=== PATIENT | female | born 1955 | race Caucasian/White ===

== ENCOUNTER 2021-05-25 20:52 | Emergency (ER) | payer SELFPAY ==
[~2021-05-25] VITALS: Ht 162.6 cm; Wt 61.8 kg
[~2021-05-25 20:52] MED LIST: SULF1TAB24 PO
[2021-05-25] MEDS ORDERED: IPRATRPIUM/ALBUTEROL 0.5/2.5MG 3 ML NEBU. NEB ONE (21:45)
[2021-05-25] MEDS ORDERED: methylPREDNISolone SOD SUCC PF 125 MG/2 ML VIAL. IV ONE (21:45)
--- NOTE | 2021-05-25 21:52 | PHYS DOC ---
Past Medical History Past Medical History: No Pertinent History, COPD Past Surgical History: No Surgical History Smoking Status: Current Every Day Smoker Alcohol Use: None Drug Use: None General Adult EDM: Chief Complaint: SHORTNESS OF BREATH HPI: HPI: Patient is a 65 year old female with history of COPD, current smoker, who presents to the ED today complaining of shortness of breath for 5 days. Patient denies any fever, reports chronic cough. Denies any chest pain. She states she used her inhaler around 2 PM with minimal relief. She states she typically has to get some steroids to feel better. Review of Systems: Review of Systems: Constitutional: Denies fever or chills. [] Eyes: Denies change in visual acuity. [] HENT: Denies nasal congestion or sore throat. [] Respiratory: Reports shortness of breath, cough Cardiovascular: Denies chest pain or edema. [] GI: Denies abdominal pain, nausea, vomiting, bloody stools or diarrhea. [] : Denies dysuria. [] Musculoskeletal: Denies back pain or joint pain. [] Integument: Denies rash. [] Neurologic: Denies headache, focal weakness or sensory changes. [] Psychiatric: Denies depression or anxiety. [] Heart Score: C/O Chest Pain: N/A Risk Factors: Risk Factors: DM, Current or recent (<one month) smoker, HTN, HLP, family history of CAD, obesity. Risk Scores: Score 0 - 3: 2.5% MACE over next 6 weeks - Discharge Home Score 4 - 6: 20.3% MACE over next 6 weeks - Admit for Clinical Observation Score 7 - 10: 72.7% MACE over next 6 weeks - Early Invasive Strategies Current Medications: Current Medications Medications (Trade) Dose Ordered Sig/Raimundo Start Time Stop Time Status Last Admin Dose Admin Albuterol/ Ipratropium (Duoneb) 3 ml 1X ONCE 05/25/21 21:45 05/25/21 21:46 DC Methylprednisolone Sodium Succinate (SOLU-Medrol 125MG VIAL) 125 mg 1X ONCE 05/25/21 21:45 05/25/21 21:46 DC Allergies: Allergies: Allergies Coded Allergies Type Severity Reaction Last Updated Verified neomycin Allergy Intermediate hives, swelling 08/20/17 Yes Physical Exam: PE: Constitutional: Well developed, well nourished, no acute distress, non-toxic appearance. [] HENT: Normocephalic, atraumatic, bilateral external ears normal, oropharynx moist, no oral exudates, nose normal. [] Eyes: PERRLA, EOMI, conjunctiva normal, no discharge. [] Neck: Normal range of motion, no tenderness, supple, no stridor. [] Cardiovascular:Heart rate regular rhythm, no murmur [] Lungs & Thorax: Patient is short of air, diminished breath sounds Abdomen: Bowel sounds normal, soft, no tenderness, no masses, no pulsatile masses. [] Skin: Warm, dry, no erythema, no rash. [] Back: No tenderness, no CVA tenderness. [] Extremities: No tenderness, no cyanosis, no clubbing, ROM intact, no edema. [] Neurologic: Alert and oriented X 3, normal motor function, normal sensory function, no focal deficits noted. [] Psychologic: Affect normal, judgement normal, mood normal. [] Current Patient Data: Vital Signs: Vital Signs Date Time Temp Pulse Resp B/P (MAP) Pulse Ox O2 Delivery O2 Flow Rate FiO2 05/25/21 21:15 98.2 84 22 162/71 (98) 96 Room Air 98.2 EKG: EK interpreted by Dr. De Oliveira sinus rhythm heart rate 71 no STEMI [] Radiology/Procedures: Radiology/Procedures: []PROCEDURE: PORTABLE CHEST 1V XR CHEST 1V History: Reason: SOA / Spl. Instructions: / History: Comparison: None. Findings: Mild patchy bibasilar opacities. No pleural effusion. No pneumothorax. Hyperinflation. Normal heart size. Impression: 1. Mild patchy bibasilar opacities, may represent atelectasis or developing consolidations. If persistent clinical concern, recommend follow-up. Electronically signed by: Ahsan Adams DO (05/25/2021 10:38 PM) [facility] DICTATED and SIGNED BY: AHSAN ADAMS DO DATE: 05/25/21 [id number] Course & Med Decision Making: Course & Med Decision Making Pertinent Labs and Imaging studies reviewed. (See chart for details) This is a 65-year-old female patient presented to the ED today with shortness of breath that began 5 days ago. History of COPD and current smoker. Patient advised to consider smoking cessation. Vitals on arrival to the ED temperature 98.2, heart rate 84, respiration 22 on room air, blood pressure 162/71, O2 sats 96% on room air. Labs are negative for any acute findings. Chest x-ray noted for possible atelectasis or infiltrates. Patient received Solu-Medrol in the ED, she feels better. She is requesting to go home. Prescription for prednisone intermittent inhaler as well as doxycycline was sent to her pharmacy Janey Disclaimer: Janey Disclaimer: This electronic medical record was generated, in whole or in part, using a voice recognition dictation system. Departure Departure Impression: Primary Impression: COPD exacerbation Disposition: HOME / SELF CARE / HOMELESS Condition: STABLE Referrals: NO PCP (PCP) Follow-up with your doctor in 1 week Patient Instructions: Chronic Obstructive Pulmonary Disease Exacerbation Additional Instructions: You were evaluated in the emergency room for shortness of breath due to COPD. We encourage you to consider smoking cessation. Use the prescribed medications as ordered. Follow-up with your doctor next week, come back to the ED at any point symptoms worsen Scripts Prednisone (PREDNISONE) 50 Mg Tablet 1 TAB PO DAILY, #5 TAB Prov: AVEL PEREZ SINTER MACHINE OPERATOR 05/25/21 Doxycycline Hyclate (DOXYCYCLINE HYCLATE) 100 Mg Tablet 1 TAB PO BID, #14 TAB Prov: AVEL PEREZ APRN 05/25/21 AVEL PEREZ APRN May 25, 2021 21:52
[2021-05-25 22:20] LABS: BASO # 0.1 x10^3/uL (0.0-0.2); BASO % 1 % (0-3); EOS # 0.5 x10^3/uL (0.0-0.7); EOS % 10 % (0-3); HEMATOCRIT 36.5 % (36.0-47.0); HEMOGLOBIN 12.3 g/dL (12.0-15.5); LYMPH # 0.9 x10^3/uL (1.0-4.8); LYMPH % 18 % (24-48); MEAN CORPUSCULAR HEMOGLOBIN 30 pg (25-35); MEAN CORPUSCULAR HGB CONC 34 g/dL (31-37); MEAN CORPUSCULAR VOLUME 90 fL (79-100); MONO # 0.5 x10^3/uL (0.0-1.1); MONO % 10 % (0-9); NEUT # 3.2 x10^3/uL (1.8-7.7); NEUT % 61 % (31-73); PLATELET COUNT 186 x10^3/uL (140-400); RED BLOOD COUNT 4.07 x10^6/uL (3.50-5.40); RED CELL DISTRIBUTION WIDTH 13.2 % (11.5-14.5); WHITE BLOOD COUNT 5.2 x10^3/uL (4.0-11.0)
[2021-05-25 22:33] LABS: ANION GAP 2 (6-14); BLOOD UREA NITROGEN 13 mg/dL (7-20); BUN/CREATININE RATIO 16 (6-20); CARBON DIOXIDE 32 mmol/L (21-32); CHLORIDE 102 mmol/L (98-107); CREATININE 0.8 mg/dL (0.6-1.0); GFR 72.2; GLUCOSE 114 mg/dL (70-99); POTASSIUM 3.9 mmol/L (3.5-5.1); SODIUM 136 mmol/L (136-145)
--- NOTE | 2021-05-25 22:34 | EKG ---
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
[2021-05-25 22:38] LABS: ALBUMIN 3.5 g/dL (3.4-5.0); ALK PHOS 90 U/L (46-116); ALT (SGPT) < 6 U/L (14-59); AST (SGOT) 18 U/L (15-37); TOTAL BILIRUBIN 0.2 mg/dL (0.2-1.0); TOTAL PROTEIN 7.1 g/dL (6.4-8.2)
--- NOTE | 2021-05-25 22:40 | RAD ---
XR CHEST 1V History: Reason: SOA / Spl. Instructions: / History: Comparison: None. Findings: Mild patchy bibasilar opacities. No pleural effusion. No pneumothorax. Hyperinflation. Normal heart s ize. Impression: 1. Mild patchy bibasilar opacities, may represent atelectasis or developing consolidations. If persi stent clinical concern, recommend follow-up. Electronically signed by: Ahsan Byrne DO (05/25/2021 10:38 PM) [facility]
[2021-05-25 22:47] VITALS: BP 147/86
[2021-05-25] MEDS ORDERED: DOXY100T PO (22:50)
[2021-05-25] MEDS ORDERED: PRED50TA PO (22:50)
--- NOTE | 2021-05-26 17:11 | NUR ---
IP: Informed pt of negative covid test. Pt verbalized understanding.
== END 2021-05-25 23:12 | disposition home or self-care (01) ==
LOC: ER 20:52
DX: J44.1 Chronic obstructive pulmonary disease with (acute) exacerbation (principal); Z20.822 Contact with and (suspected) exposure to COVID-19; F17.200 Nicotine dependence, unspecified, uncomplicated; Z88.1 Allergy status to other antibiotic agents
CPT/HCPCS: 36415; 71045; 80053; 83605; 84145; 84484; 85025; 87040; 87426; 93005; 96374; 99285; J2930; U0003; U0005

== ENCOUNTER 2021-10-16 13:01 | Inpatient (IN) | payer SELFPAY ==
[~2021-10-16] VITALS: Ht 162.6 cm; Wt 63.6 kg
[~2021-10-16 13:01] MED LIST changes: +DOXY100T PO; +PRED50TA PO
--- NOTE | 2021-10-16 15:22 | RAD ---
XR CHEST 1V History: Short of air. Comparison: 05/25/2021 Technique: Portable AP radiograph of the chest. Findings: There is mild elevation of the left diaphragm. Patchy opacification the right lower lobe. Calcified r ight lung granuloma. No pleural effusion or pneumothorax. Cardiac mediastinal silhouette and pulmonar y vasculature are within normal limits. Osseous structures and soft tissues are unremarkable. Impression: 1. Patchy right lower lobe opacities may represent pneumonia in the appropriate clinical setting. Electronically signed by: Kalen Jules MD (10/16/2021 3:20 PM) [facility]
--- NOTE | 2021-10-16 15:28 | PHYS DOC ---
Past Medical History Past Medical History: No Pertinent History, COPD (BETO BRAND DO) Past Surgical History: No Surgical History (BETO BRAND DO) Smoking Status: Current Every Day Smoker Alcohol Use: None Drug Use: None (BETO BRAND DO) General Adult EDM: Chief Complaint: SHORTNESS OF BREATH HPI: HPI: 65-year-old female past medical history of tobacco use and COPD, presents to the ED with complaints of shortness of breath and chest tightness with deep respirations, no relief with her albuterol and Combivent inhaler. States she has been taking Robitussin-CF and ampicillin x 5 days. Was fully vaccinated for Covid in July 2021. No prior history of COVID, congestive heart failure or CAD. No hospitalizations in the last 6 months. No associated leg swelling. Reports she occasionally needs oxygen when she is admitted to the hospital for her COPD-is not on any home oxygen. (BETO BRAND DO) Review of Systems: Review of Systems: Constitutional: Denies fever or chills. [] Eyes: Denies change in visual acuity. [] HENT: Denies nasal congestion or sore throat. [] Respiratory: Denies cough or shortness of breath. [] Cardiovascular: Denies syncope or edema. [] GI: Denies abdominal pain, nausea, vomiting, bloody stools or diarrhea. [] : Denies dysuria. Or hematuria Musculoskeletal: Denies back pain or joint pain. [] Integument: Denies rash or diaphoresis Neurologic: Denies headache, focal weakness or sensory changes. [] Endocrine: Denies polyuria or polydipsia. [] Lymphatic: Denies swollen glands. [] Psychiatric: Denies depression or anxiety. [] (BETO BRAND DO) Heart Score: C/O Chest Pain: No Risk Factors: Risk Factors: DM, Current or recent (<one month) smoker, HTN, HLP, family history of CAD, obesity. Risk Scores: Score 0 - 3: 2.5% MACE over next 6 weeks - Discharge Home Score 4 - 6: 20.3% MACE over next 6 weeks - Admit for Clinical Observation Score 7 - 10: 72.7% MACE over next 6 weeks - Early Invasive Strategies (BETO BRAND DO) Allergies: Allergies: Allergies Coded Allergies Type Severity Reaction Last Updated Verified neomycin Allergy Intermediate hives, swelling 08/20/17 Yes (BETO BRAND DO) Physical Exam: PE: Constitutional: Well developed, well nourished, no acute distress, non-toxic appearance. HENT: Normocephalic, atraumatic, Eyes: EOMI, conjunctiva normal, no discharge. Neck: Normal range of motion, supple, Cardiovascular: S1/2 present, regular rhythm Lungs & Thorax: Speaking in full sentences, bilateral equal chest rise, no tachypnea or increased work of breathing Abdomen: soft, no tenderness, Skin: Warm, dry, no erythema, no rash. [] Extremities: No tenderness, no cyanosis, Neurologic: Alert and oriented X 3, normal motor function, normal sensory function, no focal deficits noted. [] Psychologic: Affect normal, judgement normal, mood normal. [] (BETO BRAND DO) Current Patient Data: Vital Signs: Vital Signs Date Time Temp Pulse Resp B/P (MAP) Pulse Ox O2 Delivery O2 Flow Rate FiO2 10/16/21 14:00 97.7 99 24 169/77 (107) 100 Room Air 97.7 (BETO BRAND DO) EKG: EKG: sinus rhythm 82 bpm, no axis deviation, normal intervals, no T wave inversion, no ST elevation or ST depression (BETO BRAND DO) Radiology/Procedures: Radiology/Procedures: IMAGING REPORT Signed PATIENT: LORAINE DAWSONCOUNT: [id number] : 1955 LOCATION: ER AGE: 65 SEX: F EXAM STATUS: PRE ER ORD. PHYSICIAN: BETO BRAND DO REASON: soa PROCEDURE: CHEST AP ONLY XR CHEST 1V History: Short of air. Comparison: 05/25/2021 Technique: Portable AP radiograph of the chest. Findings: There is mild elevation of the left diaphragm. Patchy opacification the right lower lobe. Calcified right lung granuloma. No pleural effusion or pneumothorax. Cardiac mediastinal silhouette and pulmonary vasculature are within normal limits. Osseous structures and soft tissues are unremarkable. Impression: 1. Patchy right lower lobe opacities may represent pneumonia in the appropriate clinical setting. Electronically signed by: Kalen Najera MD (10/16/2021 3:20 PM) [facility] DICTATED and SIGNED BY: KALEN NAJERA MD DATE: 10/16/21 [id number] (BETO BRAND DO) Radiology/Procedures: IMAGING REPORT Signed PATIENT: LORAINE DAWSONCOUNT: [id number] : 1955 LOCATION: ER AGE: 65 SEX: F EXAM STATUS: REG ER ORD. PHYSICIAN: BETO BRAND DO REASON: soa, r/o pe PROCEDURE: CT ANGIOGRAPHY CHEST CTA CHEST dated 10/16/2021 6:15 PM Indication:Reason: soa, r/o pe / Spl. Instructions: IV omni 350 90 mls / History: Comparison: No comparison is available. Technique: Helical CT images were performed using infusion of 90 mL of Omnipaque 350. MIP reconstructions were obtained. One or more of the following individualized dose reduction techniques were ut ilized for this examination: 1. Automated exposure control 2. Adjustment of the mA and/or kV according to patient size 3. Use of iterative reconstruction technique Findings: Emphysema is seen in the lungs. No acute infiltrate is evident. There are some tiny 2 to 3 mm nodules scattered in the lungs. The central airways show no obstruction. No enlarged lymph nodes are seen. Evaluation of the pulmonary arterial tree shows no abnormal filling defect extending to the subsegmental branch level. Images through the upper abdomen show no acute abnormality. IMPRESSION: No evidence of pulmonary embolism. Emphysema. Electronically signed by: Stephanie Lilly Jr., MD (10/16/2021 6:58 PM) [facility] DICTATED and SIGNED BY: STEPHANIE LILLY Jr, MD DATE: 10/16/[id number] 0 (CHRISTIE MCKEON DO) Course & Med Decision Making: Course & Med Decision Making Pertinent Labs and Imaging studies reviewed. (See chart for details) Concern for shortness of breath and chest tightness in the setting of COPD exacerbation with hypoxia, requiring nasal cannula. Chest x-ray is concerning for pneumonia. CTA of the chest is pending. Due to shift change patient was signed out to oncoming physician Dr. Mckeon for further medical evaluation and disposition. (BETO BRAND DO) Course & Med Decision Making This patient was initially seen by Dr. Brand. Please see her note for further details of HPI and for H&P. I assumed care at [address] angiogram is pending. The patient was here with wheezing, cough, likely COPD with exacerbation, as well as hypoxia. Her oxygenation did improve after bronchodilator treatments here, though when I evaluated the patient after come back from CT, her room air oxygen saturations in the low to mid 80s. I placed her back on 2 L per nasal cannula, and she is saturating 92 to 93%. She does report feeling slightly better, though she is still tachypneic. Wheezing is improved. I have explained the findings, differential diagnosis and plan of care with her. She is already made given steroids and antibiotics. No PE is ultimately found on her CAT scan. I explained my recommendation for admission for treatment of a COPD exacerbation, as well as for hypoxic respiratory failure. The patient does not currently have a primary care doctor. She smokes tobacco, she does not have her own medications or bronchodilator treatments. 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 The patient will definitely need a pulmonary consult, she will need to have her own medications, and she will need to be qualified for home oxygen, if she is unable to wean while she is admitted. Arrangements for admission were made. She is accepted for admission by Dr. [place]. (CHRISTIE MCKEON DO) Dragon Disclaimer: Dragon Disclaimer: This electronic medical record was generated, in whole or in part, using a voice recognition dictation system. (BETO BRAND DO) Departure Departure Impression: Primary Impression: Respiratory failure with hypoxia Qualified Codes: J96.01 - Acute respiratory failure with hypoxia Additional Impressions: COPD exacerbation Tobacco dependence Disposition: ADMITTED INPATIENT Admitting Physician: [facility] (Dr. [place]) (CHRISTIE MCKEON DO) Condition: GUARDED Referrals: NO PCP (PCP) BEOT BRAND DO Oct 16, 2021 15:28 CHRISTIE MCKEON DO Oct 16, 2021 19:16
[2021-10-16] MEDS ORDERED: IPRATRPIUM/ALBUTEROL 0.5/2.5MG 3 ML NEBU. NEB ONE ×2 (15:30→19:45)
[2021-10-16] MEDS ORDERED: DEXAMETHASONE SOD PHOS 20 MG/5 ML VIAL. IV ONE (15:30)
[2021-10-16 15:51] LABS: BASO # 0.1 x10^3/uL (0.0-0.2); BASO % 1 % (0-3); EOS # 0.4 x10^3/uL (0.0-0.7); EOS % 7 % (0-3); HEMATOCRIT 39.6 % (36.0-47.0); HEMOGLOBIN 13.3 g/dL (12.0-15.5); LYMPH # 0.8 x10^3/uL (1.0-4.8); LYMPH % 13 % (24-48); MEAN CORPUSCULAR HEMOGLOBIN 31 pg (25-35); MEAN CORPUSCULAR HGB CONC 34 g/dL (31-37); MEAN CORPUSCULAR VOLUME 91 fL (79-100); MONO # 0.4 x10^3/uL (0.0-1.1); MONO % 7 % (0-9); NEUT # 4.2 x10^3/uL (1.8-7.7); NEUT % 71 % (31-73); PLATELET COUNT 198 x10^3/uL (140-400); RED BLOOD COUNT 4.33 x10^6/uL (3.50-5.40); RED CELL DISTRIBUTION WIDTH 13.2 % (11.5-14.5); WHITE BLOOD COUNT 5.9 x10^3/uL (4.0-11.0)
[2021-10-16 16:05] LABS: CALCIUM 8.6 mg/dL (8.5-10.1); CREATININE 0.7 mg/dL (0.6-1.0); GFR 84.2; POTASSIUM 4.4 mmol/L (3.5-5.1)
[2021-10-16 16:08] LABS: INFLUENZA A PATIENT NEGATIVE (NEGATIVE); INFLUENZA B PATIENT NEGATIVE (NEGATIVE)
[2021-10-16 16:10] LABS: ALBUMIN 3.9 g/dL (3.4-5.0); ALBUMIN/GLOBULIN RATIO 1.1 (1.0-1.7); TOTAL BILIRUBIN 0.3 mg/dL (0.2-1.0); TOTAL PROTEIN 7.6 g/dL (6.4-8.2)
[2021-10-16] MEDS ORDERED: AZITHRMYCN 500MG IVPB FOR OMNI 250 ML IV ONE (17:15)
[2021-10-16] MEDS ORDERED: IOHEXOL 350 MG/ML 100 ML VIAL. IV ONE (18:00)
[2021-10-16] MEDS ORDERED: CONTRAST GIVEN. MC PRN (18:15)
--- NOTE | 2021-10-16 18:19 | EKG ---
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
--- NOTE | 2021-10-16 19:01 | RAD ---
CTA CHEST dated 10/16/2021 6:15 PM Indication:Reason: soa, r/o pe / Spl. Instructions: IV omni 350 90 mls / History: Comparison: No comparison is available. Technique: Helical CT images were performed using infusion of 90 mL of Omnipaque 350. MIP reconstruct ions were obtained. One or more of the following individualized dose reduction techniques were utilized for this examinat ion: 1. Automated exposure control 2. Adjustment of the mA and/or kV according to patient size 3. Use of iterative reconstruction technique Findings: Emphysema is seen in the lungs. No acute infiltrate is evident. There are some tiny 2 to 3 mm nodules scattered in the lungs. The central airways show no obstruction. No enlarged lymph nodes are seen. Evaluation of the pulmonary arterial tree shows no abnormal filling defect extending to the subsegmen nadja branch level. Images through the upper abdomen show no acute abnormality. IMPRESSION: No evidence of pulmonary embolism. Emphysema. Electronically signed by: Mahamed Lilly Jr., MD (10/16/2021 6:58 PM) [facility]
[2021-10-16] MEDS ORDERED: ONDANSETRON PF 4 MG/2 ML VIAL. IVP PRN (19:45)
--- NOTE | 2021-10-16 20:52 | PDOC1 ---
History and Physical Date of Admission Date of Admission DATE: 10/16/21 TIME: 20:47 Source Source: Chart review, Patient History of Present Illness History of Present Illness Ms. Estrada is a 65-year-old female presented to the Er with worsening cough and short of breath. She has no past medical history other than tobacco use disorder. Her Xray is consistetn with COPD, and she complains of days of worsening shortness of breath and chest tightness with deep respirations. 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 r. States she has been taking Robitussin-CF and that abx x 5 days. She reports being vaccinated for Covid. Past Medical History Past Medical History has not seen a doctor, 30 yrs Cardiovascular: No pertinent hx Pulmonary: No pertinent hx GI: No pertinent hx ENT: No pertinent hx Renal/: No pertinent hx Endocrine: No pertinent hx Past Surgical History Past Surgical History: No pertinent history Family History Family History: Family History Unknown Social History Smoke: 1 pack per day ALCOHOL: none Drugs: None Current Problem List Problem List Problems Medical Problems: (1) COPD exacerbation Status: Acute (2) Respiratory failure with hypoxia Status: Acute (3) Tobacco dependence Status: Acute Current Medications Current Medications Current Medications Dexamethasone Sodium Phosphate (Decadron) 10 mg 1X ONCE IV Last administered on 10/16/21at 15:47; Start 10/16/21 at 15:30; Stop 10/16/21 at 15:31; Status DC Albuterol/ Ipratropium (Duoneb) 9 ml 1X ONCE NEB Last administered on 10/16/21at 15:30; Start 10/16/21 at 15:30; Stop 10/16/21 at 15:31; Status DC Azithromycin 250 ml @ 250 mls/hr 1X ONCE IV Last administered on 10/16/21at 17:15; Start 10/16/21 at 17:15; Stop 10/16/21 at 18:14; Status DC Iohexol (Omnipaque 350 Mg/ml) 90 ml 1X ONCE IV Last administered on 10/16/21at 18:28; Start 10/16/21 at 18:00; Stop 10/16/21 at 18:06; Status DC Info (CONTRAST GIVEN -- Rx MONITORING) 1 each PRN DAILY PRN MC SEE COMMENTS; Start 10/16/21 at 18:15; Stop 10/18/21 at 18:14 Ondansetron HCl (Zofran) 4 mg PRN Q8HRS PRN IVP NAUSEA/VOMITING; Start 10/16/21 at 19:45; Stop 10/17/21 at 19:44 Albuterol/ Ipratropium (Duoneb) 3 ml 1X ONCE NEB Last administered on 10/16/21at 19:52; Start 10/16/21 at 19:45; Stop 10/16/21 at 19:46; Status DC Prednisone (Prednisone) 40 mg DAILY PO ; Start 10/17/21 at 09:00 Active Scripts Active Prednisone 50 Mg Tablet 1 Tab PO DAILY Doxycycline Hyclate 100 Mg Tablet 1 Tab PO BID Bactrim Ds Tablet (Sulfamethoxazole/Trimethoprim) 1 Each Tablet 1 Tab PO BID Allergies Allergies: Coded Allergies: neomycin (Verified Allergy, Intermediate, hives, swelling, 08/20/17) ROS General: YES: Fatigue, Malaise; No: Chills, Night Sweats, Appetite, Other PSYCHOLOGICAL ROS: No: Anxiety, Behavioral Disorder, Concentration difficultie, Decreased libido, Depression, Disorientation, Hallucinations, Hostility, Irritablity, Memory difficulties, Mood Swings, Obsessive thoughts, Physical abuse, Sexual abuse, Sleep disturbances, Suicidal ideation, Other Eyes: No Blurry vision, No Decreased vision, No Double vision, No Dry eyes, No Excessive tearing, No Eye Pain, No Itchy Eyes, No Loss of vision, No Photophobia, No Scotomata, No Uses contacts, No Uses glasses, No Other HEENT: No: Heacaches, Visual Changes, Hearing change, Nasal congestion, Nasal discharge, Oral lesions, Sinus pain, Sore Throat, Epistaxis, Sneezing, Snoring, Tinnitus, Vertigo, Vocal changes, Other ENDOCRINE: No: Breast Changes, Galactorrhea, Hair Pattern Changes, Hot Flashes, Malaise/lethargy, Mood Swings, Palpitations, Polydipsia/polyuria, Skin Changes, Temperature Intolerance, Unexpected Weight Changes, Other Respiratory: YES: Cough, Shortness of breath, SOB with excertion, Sputum Changes; No: Hemoptysis, Orthopnea, Pleuritic Pain, Stridor, Tachypnea, Wheezing, Ot her Cardiovascular: No Chest Pain, No Palpitations, No Orthopnea, No Paroxysmal Noc. Dyspnea, No Edema, No Lt Headedness, No Other Gastrointestinal: Yes Nausea; No Vomiting, No Abdominal Pain, No Diarrhea, No Constipation, No Melena, No Hematochezia, No Other Genitourinary: No Dysuria, No Frequency, No Incontinence, No Hematuria, No Retention, No Discharge, No Urgency, No Pain, No Flank Pain, No Other, No , No , No , No , No , No , No Musculoskeletal: No Gait Disturbance, No Joint Pain, No Joint Stiffness, No Joint Swelling, No Muscle Pain, No Muscular Weakness, No Pain In:, No Swelling In:, No Other Neurological: No Behavorial Changes, No Bowel/Bladder ControlChng, No Confusion, No Dizziness, No Gait Disturbance, No Headaches, No Impaired Coord/balance, No Memory Loss, No Numbness/Tingling, No Seizures, No Speech Problems, No Tremors, No Visual Changes, No Weakness, No Other Skin: Yes Dry Skin; No Eczema, No Hair Changes, No Lumps, No Mole Changes, No Mottling, No Nail Changes, No Pruritus, No Rash, No Skin Lesion Changes, No Other, No Acne Physical Exam General: Alert, Oriented X3, Cooperative, mild distress HEENT: EOMI, Mucous membr. moist/pink Lungs: Other (limited vol, kyphotic, rales, no wheeze, distant sounds) Heart: no gallops, no murmurs Rectal Exam: deferred Extremities: No clubbing, No edema Skin: No rashes, No significant lesion Neuro: Normal speech, Normal tone, Sensation intact Psych/Mental Status: Mental status NL, Mood NL Vitals Vitals Vital Signs Date Time Temp Pulse Resp B/P (MAP) Pulse Ox O2 Delivery O2 Flow Rate FiO2 10/16/21 19:54 91 Room Air 10/16/21 19:30 86 22 152/117 (129) 2.0 10/16/21 14:00 97.7 97.7 Labs Labs Laboratory Tests Test 10/16/21 15:40 White Blood Count 5.9 x10^3/uL (4.0-11.0) Red Blood Count 4.33 x10^6/uL (3.50-5.40) Hemoglobin 13.3 g/dL (12.0-15.5) Hematocrit 39.6 % (36.0-47.0) Mean Corpuscular Volume 91 fL (79-100) Mean Corpuscular Hemoglobin 31 pg (25-35) Mean Corpuscular Hemoglobin Concent 34 g/dL (31-37) Red Cell Distribution Width 13.2 % (11.5-14.5) Platelet Count 198 x10^3/uL (140-400) Neutrophils (%) (Auto) 71 % (31-73) Lymphocytes (%) (Auto) 13 % (24-48) Monocytes (%) (Auto) 7 % (0-9) Eosinophils (%) (Auto) 7 % (0-3) Basophils (%) (Auto) 1 % (0-3) Neutrophils # (Auto) 4.2 x10^3/uL (1.8-7.7) Lymphocytes # (Auto) 0.8 x10^3/uL (1.0-4.8) Monocytes # (Auto) 0.4 x10^3/uL (0.0-1.1) Eosinophils # (Auto) 0.4 x10^3/uL (0.0-0.7) Basophils # (Auto) 0.1 x10^3/uL (0.0-0.2) D-Dimer (Sisi) 0.59 ug/mlFEU (0.00-0.50) Sodium Level 143 mmol/L (136-145) Potassium Level 4.4 mmol/L (3.5-5.1) Chloride Level 105 mmol/L (98-107) Carbon Dioxide Level 30 mmol/L (21-32) Anion Gap 8 (6-14) Blood Urea Nitrogen 16 mg/dL (7-20) Creatinine 0.7 mg/dL (0.6-1.0) Estimated GFR (Cockcroft-Gault) 84.2 BUN/Creatinine Ratio 23 (6-20) Glucose Level 94 mg/dL (70-99) Calcium Level 8.6 mg/dL (8.5-10.1) Total Bilirubin 0.3 mg/dL (0.2-1.0) Aspartate Amino Transf (AST/SGOT) 21 U/L (15-37) Alanine Aminotransferase (ALT/SGPT) 26 U/L (14-59) Alkaline Phosphatase 119 U/L (46-116) Troponin I High Sensitivity 16 ng/L (4-50) Total Protein 7.6 g/dL (6.4-8.2) Albumin 3.9 g/dL (3.4-5.0) Albumin/Globulin Ratio 1.1 (1.0-1.7) Influenza Type A Antigen Negative (NEGATIVE) Influenza Type B Antigen Negative (NEGATIVE) SARS-CoV-2 Antigen (Rapid) Negative (NEGATIVE) Laboratory Tests Test 10/16/21 15:40 White Blood Count 5.9 x10^3/uL (4.0-11.0) Red Blood Count 4.33 x10^6/uL (3.50-5.40) Hemoglobin 13.3 g/dL (12.0-15.5) Hematocrit 39.6 % (36.0-47.0) Mean Corpuscular Volume 91 fL (79-100) Mean Corpuscular Hemoglobin 31 pg (25-35) Mean Corpuscular Hemoglobin Concent 34 g/dL (31-37) Red Cell Distribution Width 13.2 % (11.5-14.5) Platelet Count 198 x10^3/uL (140-400) Neutrophils (%) (Auto) 71 % (31-73) Lymphocytes (%) (Auto) 13 % (24-48) Monocytes (%) (Auto) 7 % (0-9) Eosinophils (%) (Auto) 7 % (0-3) Basophils (%) (Auto) 1 % (0-3) Neutrophils # (Auto) 4.2 x10^3/uL (1.8-7.7) Lymphocytes # (Auto) 0.8 x10^3/uL (1.0-4.8) Monocytes # (Auto) 0.4 x10^3/uL (0.0-1.1) Eosinophils # (Auto) 0.4 x10^3/uL (0.0-0.7) Basophils # (Auto) 0.1 x10^3/uL (0.0-0.2) D-Dimer (Sisi) 0.59 ug/mlFEU (0.00-0.50) Sodium Level 143 mmol/L (136-145) Potassium Level 4.4 mmol/L (3.5-5.1) Chloride Level 105 mmol/L (98-107) Carbon Dioxide Level 30 mmol/L (21-32) Anion Gap 8 (6-14) Blood Urea Nitrogen 16 mg/dL (7-20) Creatinine 0.7 mg/dL (0.6-1.0) Estimated GFR (Cockcroft-Gault) 84.2 BUN/Creatinine Ratio 23 (6-20) Glucose Level 94 mg/dL (70-99) Calcium Level 8.6 mg/dL (8.5-10.1) Total Bilirubin 0.3 mg/dL (0.2-1.0) Aspartate Amino Transf (AST/SGOT) 21 U/L (15-37) Alanine Aminotransferase (ALT/SGPT) 26 U/L (14-59) Alkaline Phosphatase 119 U/L (46-116) Troponin I High Sensitivity 16 ng/L (4-50) Total Protein 7.6 g/dL (6.4-8.2) Albumin 3.9 g/dL (3.4-5.0) Albumin/Globulin Ratio 1.1 (1.0-1.7) Influenza Type A Antigen Negative (NEGATIVE) Influenza Type B Antigen Negative (NEGATIVE) SARS-CoV-2 Antigen (Rapid) Negative (NEGATIVE) VTE Prophylaxis Ordered VTE Prophylaxis Devices: No VTE Pharmacological Prophylaxi: Yes Assessment/Plan Assessment/Plan new diagnosis of COPD acute hypoxia COPD exacerbation with acute bronchitis tobacco use disorder, says she quit 4 days ago when she began to feel unwell admit, nebs, abx, steroids Justifications for Admission Other Justification MAURY VIGIL MD Oct 16, 2021 20:52
[2021-10-16] MEDS ORDERED: IPRATRPIUM/ALBUTEROL 0.5/2.5MG 3 ML NEBU. NEB SCH (21:00)
[2021-10-16] MEDS: IPRATRPIUM/ALBUTEROL 0.5/2.5MG 3 ML NEBU. NEB SCH (21:01)
[2021-10-17] MEDS: IPRATRPIUM/ALBUTEROL 0.5/2.5MG 3 ML NEBU. NEB SCH ×4 (05:39→18:20)
[2021-10-17] MEDS: ENOXAPARIN 40 MG/0.4 ML SYRINGE. SQ SCH ×2 (06:19→20:52)
[2021-10-17] MEDS: AZITHROMYCIN 250 MG TABLET. PO SCH (08:39)
[2021-10-17] MEDS: predniSONE 20 MG TABLET PO SCH (08:39)
[2021-10-17] MEDS: cefTRIAXone IV Push 1 GM VIAL. IVP SCH (08:49)
--- NOTE | 2021-10-17 12:09 | CONS ---
DATE OF CONSULTATION: 10/17/2021 PULMONARY CONSULTATION ATTENDING PHYSICIAN: Leticia Washington MD. REASON FOR CONSULTATION: Dyspnea, respiratory failure. HISTORY OF PRESENT ILLNESS: The patient is a 65-year-old female who has been a smoker since age 15. She has smoked up to one and half pack per day. She was brought into the hospital complaining of increasing dyspnea. She has a cough, but she is unable to bring up sputum. She was also having some chest pain. The patient took some amoxicillin that her daughter had and also some breathing treatments. She did not feel any better. She was brought into the hospital. The patient has been fully vaccinated for COVID. The patient underwent CT angiogram, which was reviewed by me. There is no evidence of pulmonary embolism. There are no pulmonary infiltrates. There were tiny few 2-3 mm nodules, which are likely nonspecific. I saw the patient in the Emergency Room. PAST MEDICAL HISTORY: Significant for suspected COPD, could be severe. PAST SURGICAL HISTORY: No recent surgeries. ALLERGIES: NEOMYCIN. MEDICATIONS: Given in the ER were reviewed including empiric antibiotics, bronchodilators and oral prednisone. REVIEW OF SYSTEMS: A 12-point review of system obtained. Pertinent positives discussed in my present illness, otherwise noncontributory. All systems that were negative were reviewed as well. FAMILY HISTORY: Noncontributory to lungs. SOCIAL HISTORY: Smoker up to one and half pack per day. She has been smoking since age 15. PHYSICAL EXAMINATION: VITAL SIGNS: Reviewed. Blood pressure stable, afebrile; pulse ox 96% on 2 liters. NECK: Supple. LUNGS: With diminished breath sounds. No wheezing. CARDIOVASCULAR: With a regular rate. ABDOMEN: Soft, nontender. EXTREMITIES: With no pitting edema. LABORATORY DATA: Reviewed. White cell count 5.9, hemoglobin 13.3 and platelets are 198. Influenza and COVID are negative. BUN 16, creatinine 0.7. IMPRESSION: 1. Acute hypoxic respiratory failure secondary to acute exacerbation of chronic obstructive pulmonary disease and acute bronchitis. 2. CT angiogram with no evidence of pulmonary embolism. No infiltrates. Tiny 2-3 mm few scattered nodules, which are nonspecific and recommend CT chest in a year from now. 3. History of tobaccoism since age 15. Up to one and half pack per day, has not completely quit. RECOMMENDATIONS: 1. Continue present oxygen. Keep saturation 92% and above. 2. DuoNebs. 3. Oral prednisone. 4. Empiric antibiotics. 5. Lovenox for DVT prophylaxis. 6. Smoking cessation counseling provided. She plans to quit cigarettes. 7. Repeat CT chest in 1 year. 8. Discussed with the hospitalist, Dr. Rod. Hopefully, discharge in next 24 hours. JONELLE/AQUILES DR: Dk TID: [id number]
--- NOTE | 2021-10-17 12:30 | PDOC ---
[employer] PROGRESS NOTE Date of Service DOS: DATE: 10/17/21 TIME: 12:28 History of Present Illness History of Present Illness 65-year-old female presented to the Er with worsening cough and short of breath. She has no past medical history other than tobacco use disorder. Her Xray is consistetn with COPD, and she complains of days of worsening shortness of breath and chest tightness with deep respirations. 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 r. States she has been taking Robitussin-CF and that abx x 5 days. She reports being vaccinated for Covid. 10/17/21 No acute events overnight. Patient saturating 94% on 2 L nasal cannula. No acute dyspnea upon my evaluation. No concerns from nursing. Patient tolerating steroids and IV antibiotics. Plan for outpatient CT chest in 1 year. Patient's chart, labs, images were reviewed and discussed with RN Vitals/I&O Vitals/I&O: Vital Signs Date Time Temp Pulse Resp B/P (MAP) Pulse Ox O2 Delivery O2 Flow Rate FiO2 10/17/21 12:24 94 Nasal Cannula 2.0 10/17/21 11:38 98.6 84 16 143/70 (94) 98.6 Physical Exam General: Alert, Oriented X3, Cooperative, mild distress Extremities: No clubbing, No edema Skin: No rashes, No significant lesion Labs Labs: Laboratory Tests Test 10/16/21 15:40 White Blood Count 5.9 x10^3/uL (4.0-11.0) Red Blood Count 4.33 x10^6/uL (3.50-5.40) Hemoglobin 13.3 g/dL (12.0-15.5) Hematocrit 39.6 % (36.0-47.0) Mean Corpuscular Volume 91 fL (79-100) Mean Corpuscular Hemoglobin 31 pg (25-35) Mean Corpuscular Hemoglobin Concent 34 g/dL (31-37) Red Cell Distribution Width 13.2 % (11.5-14.5) Platelet Count 198 x10^3/uL (140-400) Neutrophils (%) (Auto) 71 % (31-73) Lymphocytes (%) (Auto) 13 % (24-48) Monocytes (%) (Auto) 7 % (0-9) Eosinophils (%) (Auto) 7 % (0-3) Basophils (%) (Auto) 1 % (0-3) Neutrophils # (Auto) 4.2 x10^3/uL (1.8-7.7) Lymphocytes # (Auto) 0.8 x10^3/uL (1.0-4.8) Monocytes # (Auto) 0.4 x10^3/uL (0.0-1.1) Eosinophils # (Auto) 0.4 x10^3/uL (0.0-0.7) Basophils # (Auto) 0.1 x10^3/uL (0.0-0.2) D-Dimer (Sisi) 0.59 ug/mlFEU (0.00-0.50) Sodium Level 143 mmol/L (136-145) Potassium Level 4.4 mmol/L (3.5-5.1) Chloride Level 105 mmol/L (98-107) Carbon Dioxide Level 30 mmol/L (21-32) Anion Gap 8 (6-14) Blood Urea Nitrogen 16 mg/dL (7-20) Creatinine 0.7 mg/dL (0.6-1.0) Estimated GFR (Cockcroft-Gault) 84.2 BUN/Creatinine Ratio 23 (6-20) Glucose Level 94 mg/dL (70-99) Calcium Level 8.6 mg/dL (8.5-10.1) Total Bilirubin 0.3 mg/dL (0.2-1.0) Aspartate Amino Transf (AST/SGOT) 21 U/L (15-37) Alanine Aminotransferase (ALT/SGPT) 26 U/L (14-59) Alkaline Phosphatase 119 U/L (46-116) Troponin I High Sensitivity 16 ng/L (4-50) Total Protein 7.6 g/dL (6.4-8.2) Albumin 3.9 g/dL (3.4-5.0) Albumin/Globulin Ratio 1.1 (1.0-1.7) Influenza Type A Antigen Negative (NEGATIVE) Influenza Type B Antigen Negative (NEGATIVE) SARS-CoV-2 RNA (SANGITA) Negative (Negative) SARS-CoV-2 Antigen (Rapid) Negative (NEGATIVE) Assessment and Plan Assessmemt and Plan Problems Medical Problems: (1) COPD exacerbation Status: Acute (2) Respiratory failure with hypoxia Status: Acute (3) Tobacco dependence Status: Acute Comment Review of Relevant I have reviewed the following items megan (where applicable) has been applied. Medications: Current Medications Medications (Trade) Dose Ordered Sig/Raimundo Route PRN Reason Start Time Stop Time Status Last Admin Dose Admin Dexamethasone Sodium Phosphate (Decadron) 10 mg 1X ONCE IV 10/16/21 15:30 10/16/21 15:31 DC 10/16/21 15:47 Albuterol/ Ipratropium (Duoneb) 9 ml 1X ONCE NEB 10/16/21 15:30 10/16/21 15:31 DC 10/16/21 15:30 Azithromycin 250 ml @ 250 mls/hr 1X ONCE IV 10/16/21 17:15 10/16/21 18:14 DC 10/16/21 17:15 Iohexol (Omnipaque 350 Mg/ml) 90 ml 1X ONCE IV 10/16/21 18:00 10/16/21 18:06 DC 10/16/21 18:28 Albuterol/ Ipratropium (Duoneb) 3 ml 1X ONCE NEB 10/16/21 19:45 10/16/21 19:46 DC 10/16/21 19:52 Prednisone (Prednisone) 40 mg DAILY PO 10/17/21 09:00 10/17/21 08:39 Azithromycin (Zithromax) 250 mg DAILY08 PO 10/17/21 08:00 10/17/21 08:39 Albuterol/ Ipratropium (Duoneb) 3 ml RTQID NEB 10/16/21 21:01 10/17/21 12:23 Enoxaparin Sodium (Lovenox 40mg Syringe) 40 mg Q24H SQ 10/16/21 21:15 10/17/21 06:19 Ceftriaxone Sodium (Rocephin) 1 gm Q24H IVP 10/17/21 09:00 10/17/21 08:49 Justifications for Admission Other Justification MINDY DHILLON MD Oct 17, 2021 12:30
[2021-10-17 16:30] VITALS: BP 130/58
[2021-10-17] MEDS ORDERED: IPRA4AER IH (18:09)
[2021-10-17] MEDS ORDERED: OLAN10TA3 PO (18:09)
[2021-10-17 19:00] VITALS: BP 133/65
[2021-10-17] MEDS ORDERED: OLANZapine 5 MG TABLET PO SCH (21:15)
[2021-10-17 23:00] VITALS: BP 117/51
[2021-10-18 03:00] VITALS: BP 123/65
[2021-10-18] MEDS: IPRATRPIUM/ALBUTEROL 0.5/2.5MG 3 ML NEBU. NEB SCH (06:03)
[2021-10-18 07:30] VITALS: BP 120/61
--- NOTE | 2021-10-18 08:25 | PDOC ---
PULMONARY PROGRESS NOTES DATE: 10/18/21 TIME: 08:25 Vitals Vital Signs Date Time Temp Pulse Resp B/P (MAP) Pulse Ox O2 Delivery O2 Flow Rate FiO2 10/18/21 07:30 97.9 77 18 120/61 (80) 99 Nasal Cannula 2.0 97.9 Labs Laboratory Tests Test 10/16/21 15:40 White Blood Count 5.9 x10^3/uL (4.0-11.0) Red Blood Count 4.33 x10^6/uL (3.50-5.40) Hemoglobin 13.3 g/dL (12.0-15.5) Hematocrit 39.6 % (36.0-47.0) Mean Corpuscular Volume 91 fL (79-100) Mean Corpuscular Hemoglobin 31 pg (25-35) Mean Corpuscular Hemoglobin Concent 34 g/dL (31-37) Red Cell Distribution Width 13.2 % (11.5-14.5) Platelet Count 198 x10^3/uL (140-400) Neutrophils (%) (Auto) 71 % (31-73) Lymphocytes (%) (Auto) 13 % (24-48) Monocytes (%) (Auto) 7 % (0-9) Eosinophils (%) (Auto) 7 % (0-3) Basophils (%) (Auto) 1 % (0-3) Neutrophils # (Auto) 4.2 x10^3/uL (1.8-7.7) Lymphocytes # (Auto) 0.8 x10^3/uL (1.0-4.8) Monocytes # (Auto) 0.4 x10^3/uL (0.0-1.1) Eosinophils # (Auto) 0.4 x10^3/uL (0.0-0.7) Basophils # (Auto) 0.1 x10^3/uL (0.0-0.2) D-Dimer (Sisi) 0.59 ug/mlFEU (0.00-0.50) Sodium Level 143 mmol/L (136-145) Potassium Level 4.4 mmol/L (3.5-5.1) Chloride Level 105 mmol/L (98-107) Carbon Dioxide Level 30 mmol/L (21-32) Anion Gap 8 (6-14) Blood Urea Nitrogen 16 mg/dL (7-20) Creatinine 0.7 mg/dL (0.6-1.0) Estimated GFR (Cockcroft-Gault) 84.2 BUN/Creatinine Ratio 23 (6-20) Glucose Level 94 mg/dL (70-99) Calcium Level 8.6 mg/dL (8.5-10.1) Total Bilirubin 0.3 mg/dL (0.2-1.0) Aspartate Amino Transf (AST/SGOT) 21 U/L (15-37) Alanine Aminotransferase (ALT/SGPT) 26 U/L (14-59) Alkaline Phosphatase 119 U/L (46-116) Troponin I High Sensitivity 16 ng/L (4-50) Total Protein 7.6 g/dL (6.4-8.2) Albumin 3.9 g/dL (3.4-5.0) Albumin/Globulin Ratio 1.1 (1.0-1.7) Influenza Type A Antigen Negative (NEGATIVE) Influenza Type B Antigen Negative (NEGATIVE) SARS-CoV-2 RNA (SANGITA) Negative (Negative) SARS-CoV-2 Antigen (Rapid) Negative (NEGATIVE) Medications Active Scripts Medications Dose Route/Sig Max Daily Dose Days Date Category Zyprexa (Olanzapine) 10 Mg Tablet 1 Tab PO QHS 10/17/21 Reported Combivent Respimat Inhal (Ipratropium/Albuterol Sulfate) 4 Gm Aer.w.adap 2 Inh IH QID 10/17/21 Reported DANIELA MOREJON MD Oct 18, 2021 08:25
[2021-10-18] MEDS ORDERED: PRED-220 PO (08:29)
[2021-10-18] MEDS ORDERED: DOXY100C3 PO (08:29)
--- NOTE | 2021-10-18 08:31 | PDOC3 ---
Discharge Summary Visit Information Date of Admission: Oct 16, 2021 Date of Discharge: Oct 18, 2021 Final Diagnosis Problems Medical Problems: (1) COPD exacerbation Status: Acute (2) Respiratory failure with hypoxia Status: Acute (3) Tobacco dependence Status: Acute Brief Hospital Course Allergies Allergies Coded Allergies Type Severity Reaction Last Updated Verified neomycin Allergy Intermediate hives, swelling 08/20/17 Yes Vital Signs Vital Signs Date Time Temp Pulse Resp B/P (MAP) Pulse Ox O2 Delivery O2 Flow Rate FiO2 10/18/21 07:30 97.9 77 18 120/61 (80) 99 Nasal Cannula 2.0 97.9 Lab Results Laboratory Tests Test 10/16/21 15:40 White Blood Count 5.9 x10^3/uL (4.0-11.0) Red Blood Count 4.33 x10^6/uL (3.50-5.40) Hemoglobin 13.3 g/dL (12.0-15.5) Hematocrit 39.6 % (36.0-47.0) Mean Corpuscular Volume 91 fL (79-100) Mean Corpuscular Hemoglobin 31 pg (25-35) Mean Corpuscular Hemoglobin Concent 34 g/dL (31-37) Red Cell Distribution Width 13.2 % (11.5-14.5) Platelet Count 198 x10^3/uL (140-400) Neutrophils (%) (Auto) 71 % (31-73) Lymphocytes (%) (Auto) 13 % (24-48) Monocytes (%) (Auto) 7 % (0-9) Eosinophils (%) (Auto) 7 % (0-3) Basophils (%) (Auto) 1 % (0-3) Neutrophils # (Auto) 4.2 x10^3/uL (1.8-7.7) Lymphocytes # (Auto) 0.8 x10^3/uL (1.0-4.8) Monocytes # (Auto) 0.4 x10^3/uL (0.0-1.1) Eosinophils # (Auto) 0.4 x10^3/uL (0.0-0.7) Basophils # (Auto) 0.1 x10^3/uL (0.0-0.2) D-Dimer (Sisi) 0.59 ug/mlFEU (0.00-0.50) Sodium Level 143 mmol/L (136-145) Potassium Level 4.4 mmol/L (3.5-5.1) Chloride Level 105 mmol/L (98-107) Carbon Dioxide Level 30 mmol/L (21-32) Anion Gap 8 (6-14) Blood Urea Nitrogen 16 mg/dL (7-20) Creatinine 0.7 mg/dL (0.6-1.0) Estimated GFR (Cockcroft-Gault) 84.2 BUN/Creatinine Ratio 23 (6-20) Glucose Level 94 mg/dL (70-99) Calcium Level 8.6 mg/dL (8.5-10.1) Total Bilirubin 0.3 mg/dL (0.2-1.0) Aspartate Amino Transf (AST/SGOT) 21 U/L (15-37) Alanine Aminotransferase (ALT/SGPT) 26 U/L (14-59) Alkaline Phosphatase 119 U/L (46-116) Troponin I High Sensitivity 16 ng/L (4-50) Total Protein 7.6 g/dL (6.4-8.2) Albumin 3.9 g/dL (3.4-5.0) Albumin/Globulin Ratio 1.1 (1.0-1.7) Influenza Type A Antigen Negative (NEGATIVE) Influenza Type B Antigen Negative (NEGATIVE) SARS-CoV-2 RNA (SANGITA) Negative (Negative) SARS-CoV-2 Antigen (Rapid) Negative (NEGATIVE) Brief Hospital Course Ms. Estrada is a 65 old 65-year-old female presented to the Er with worsening cough and short of breath, noted tobacco use disorder. Her Xray showed COPD, She reports being vaccinated for Covid. steroids, abx, much better at 2 days, DC on taper of prednsioen, doxy Sa02 resolved, hypxoia better Discharge Information Condition at Discharge: Improved Follow Up: Weeks Disposition/Orders: D/C to Home Scheduled Doxycycline Hyclate (Doxycycline Hyclate) 100 Mg Capsule, 1 CAP PO BID for COPD, #12 Prescribed by: MAURY VIGIL on 10/18/21 0829 Ipratropium/Albuterol Sulfate (Combivent Respimat Inhal) 4 Gm Aer.w.adap, 2 INH IH QID for copd, (Reported) Entered as Reported by: JIM VIERA on 10/17/21 180 Last Taken: Unknown Dose on Unknown Date & Time Last Action: New Order on 10/17/211808 by JIM VIERA Olanzapine (Zyprexa) 10 Mg Tablet, 1 TAB PO QHS for sleep, #30 Ref 2 (Reported) Entered as Reported by: JIM VIERA on 10/17/211808 Last Taken: Unknown Dose on Unknown Date & Time Last Action: Converted on 10/17/212101 by MARLENA PALACIOS Prednisone (Prednisone ) 10 Mg Tablet, 10 MG PO UD for prednisone taper, #20 Ref 0 Take 4 tablets by mouth daily for 2 days, then take 3 tablets by mouth daily for 2 days, then take 2 tablets by mouth daily for 2 days, then take 1 tablets by mouth daily for 2 days, then stop. Prescribed by: MAURY VIGIL on 10/18/21828 Patient Instructions Patient Instructions pt seen face to face today < 30 min Justicifation of Admission Dx: Justifications for Admission: Justification of Admission Dx: Yes (acute hypxoa) MAURY VIGIL MD Oct 18, 2021 08:31
[2021-10-18] MEDS: cefTRIAXone IV Push 1 GM VIAL. IVP SCH ×2 (09:00→09:10)
[2021-10-18] MEDS: predniSONE 20 MG TABLET PO SCH (09:10)
[2021-10-18] MEDS: AZITHROMYCIN 250 MG TABLET. PO SCH (09:10)
--- NOTE | 2021-10-18 10:10 | NUR ---
Discharge Note: OMAIRA DAWSON [address] [place] [address] Discharge instructions and discharge home medications reviewed with Patient and a copy given. All questions have been answered and understanding verbalized. The following instructions and handouts were given: f/u with PCP within two weeks. Discontinued lines and drains: Peripheral IV intact. Patient discharged to Home or Self Care with Self via [facility].
--- NOTE | 2021-10-18 11:39 | NUR ---
SW following. Discussed with RN, discharge order for home with self care. Pt left first thing this morning. RN advised no SW needs.
== END 2021-10-18 10:10 | disposition home or self-care (01) | DRG 189 ==
LOC: ER 13:01 → ED HOLD 19:15 → OBSVTOIN 19:15 → 5 SOUTH 10-17 16:09
PROVIDERS: ADMIT Internal Medicine; ATTEND Internal Medicine
DX: J96.01 Acute respiratory failure with hypoxia (principal); J20.9 Acute bronchitis, unspecified; J43.9 Emphysema, unspecified; Z86.16 Personal history of COVID-19; F17.210 Nicotine dependence, cigarettes, uncomplicated; Z20.822 Contact with and (suspected) exposure to COVID-19; Z88.8 Allergy status to other drugs, medicaments and biological substances; Z71.6 Tobacco abuse counseling
CPT/HCPCS: 36415; 71045; 71275; 80053; 84484; 85025; 85379; 87426; 87804; 93005; 94640; J0456; J0696; J1100; J1650; J7512; Q9967; U0003; U0005; 99285-25; G0378